=== PATIENT | female | born 1990 | race Hispanic/Latino ===

== ENCOUNTER 2021-05-21 15:02 | Emergency (ER) | payer BC, SELFPAY | END 2021-05-21 18:39 | disposition short-term general hospital (02) | LOC: ERS 15:02 | DX: O99.891 Other specified diseases and conditions complicating pregnancy (principal); R04.0 Epistaxis; O26.893 Other specified pregnancy related conditions, third trimester; R10.30 Lower abdominal pain, unspecified; Z3A.26 26 weeks gestation of pregnancy | CPT/HCPCS: 99284 ==